=== PATIENT | female | born 1965 | race Caucasian/White ===

== ENCOUNTER 2018-04-13 04:45 | Emergency (ER) | payer OTHER, MEDICAID, SELFPAY ==
[2018-04-13] MEDS: ALBUTEROL 2.5 MG/3 ML NEB (ADULT) INH ×2 (05:00)
[2018-04-13 05:02] VITALS: BP 191/112; PULSE 127; RESP 24; TEMP 37.1; O2SAT 95; BMI 40.7
--- NOTE | 2018-04-13 05:10 | DI.RAD.S_ITS ---
PROCEDURE: XR CHEST 1V INDICATIONS: sob, wheeze TECHNIQUE: One view of the chest was acquired. COMPARISON: [facility], CR, XR CHEST 1VW (PORTABLE), 08/07/2016, 14:41. FINDINGS: Surgical changes and devices: None. Lungs and pleura: There is diffuse interstitial prominence. No focal pulmonary opacities. No pleural effusion or pneumothorax. Mediastinum: Mediastinal contours appear normal. Heart size is normal. Bones and chest wall: No suspicious bony lesions. Overlying soft tissues appear unremarkable. IMPRESSION: Diffuse interstitial prominence suggesting fluid overload. Dictated by: Margo Regalado M.D. on 04/13/2018 at 8:36 Approved by: Margo Regalado M.D. on 04/13/2018 at 8:37
--- NOTE | 2018-04-13 05:27 | ED.SOB ---
HPI - SOB/Dyspnea General Chief Complaint: Shortness of Breath/Dyspnea Stated Complaint: coughing wheezing x2 days Time Seen by Provider: 04/13/18 05:08 Source: patient Mode of arrival: ambulatory Limitations: no limitations History of Present Illness This is a 53-year-old female comes to the emergency department with complaint of shortness of breath and wheezing. Patient states she has a history of COPD. She has an albuterol inhaler which she has been using. She is to be on steroid inhalers but has not had them in a long time. She just got back from [facility] Saturday evening and states she was around a lot of smoke which probably exacerbated her symptoms. She has not had any fevers. She has been coughing. She denies any chest pain or pressure. No GI or urinary symptoms no nausea or vomiting. Patient has been hospitalized before but never intubated for her breathing. She also has a history of irregular heartbeat and when asked if she has has atrial fibrillation believe she does. She is also not taking any medications for this. She is not taking any blood thinners. Related Data Previous Rx's Medication Instructions Recorded albuterol sulfate 1 puff INHALATION Q4-6H PRN #6.7 04/13/18 gram prednisone 40 mg PO DAILY 5 Days tab 04/13/18 Allergies Allergy/AdvReac Type Severity Reaction Status Date / Time azithromycin Allergy Verified 04/13/18 05:08 morphine Allergy Verified 04/13/18 05:08 Review of Systems Review of Systems All systems reviewed & are unremarkable except as noted in HPI and below Constitutional Denies fever(s) Cardiovascular Denies chest pain, Denies diaphoresis, Reports rapid heart rate, Reports dyspnea and Reports dyspnea on exertion Respiratory Denies chest congestion, Denies cough, Denies excessive phlegm production, Reports dyspnea, Reports dyspnea on exertion and Reports wheezing Gastrointestinal Gastrointestinal: Denies abdominal pain, Denies change in bowel habits, Denies diarrhea, Denies nausea and Denies vomiting Musculoskeletal Denies other (Edema bilateral legs) Allergic/Immunologic Reports wheezing [facility] Medical History COPD (chronic obstructive pulmonary disease) (Acute) Hypertension (Acute) Irregular heartbeat (Acute) Exam Narrative Exam Narrative: GENERAL: Alert and oriented x three, obese female in moderate distress HEENT: Head normocephalic, atraumatic, EOMI, pupils reactive, face symmetric, moist mucous membranes, no nasal congestion. NECK: Supple, full range of motion CARDIOVASCULAR: Tachycardic but Regular rate and rhythm without murmurs, rubs or gallops. RESPIRATORY: Breath sounds equal bilaterally, diffuse wheezes bilaterally. Expiratory. Tachypneic with accessory muscle use in 2-3 words. ABDOMEN: Soft, nontender. Normoactive bowel sounds all 4 quadrants. No guarding or rebound, rigidity, no mass EXTREMITIES: Normal range of motion, no clubbing or edema. Neurovascularly intact NEUROLOGICAL: Cranial nerves II through XII grossly intact. Moving all extremities SKIN: Warm, dry, no petechiae, no rashes or lesions. Initial Vital Signs Initial Vital Signs: Vital Signs Temperature 98.7 F 04/13/18 05:02 Pulse Rate 127 H 04/13/18 05:02 Respiratory Rate 24 04/13/18 05:02 Blood Pressure 191/112 H 04/13/18 05:02 Pulse Oximetry 95 04/13/18 05:02 Course Orders Ordered: ED Orders 04/13/18 05:09 Consult to Respiratory Therapy Evaluate & Treat EKG-12 Lead Stat 04/13/18 05:10 XR chest 1V Stat 04/13/18 05:26 B Type Natriuretic Peptide Stat Basic Metabolic Panel Stat Complete Blood Count AUTO DIFF Stat Magnesium Stat Troponin & CK Cardiac Panel Stat Discontinued Medications Albuterol (Ventolin) 2.5 mg INH NOW ONE Stop: 04/13/18 04:58 Last Admin: 04/13/18 05:00 Dose: 2.5 mg Albuterol (Ventolin) 2.5 mg INH NOW ONE Stop: 04/13/18 05:00 Last Admin: 04/13/18 05:00 Dose: 2.5 mg Sodium Chloride (Normal Saline 0.9%) 1,000 mls @ 1,000 mls/hr IV BOLUS ONE Stop: 04/13/18 06:08 Last Infusion: 04/13/18 06:31 Dose: 0 mls/hr Admin: 04/13/18 05:41 Dose: 1,000 mls/hr Methylprednisolone (Solu-Medrol 125 Mg Vial) 125 mg IV NOW ONE Stop: 04/13/18 05:10 Last Admin: 04/13/18 05:41 Dose: 125 mg Vital Signs - 8 hr 04/13/18 05:02 04/13/18 05:30 04/13/18 06:00 Temperature 98.7 F Pulse Rate 127 H 120 H 118 H Respiratory Rate 24 Blood Pressure 191/112 H Blood Pressure [Right Arm] 158/112 H 186/112 H Pulse Oximetry 95 91 92 MDM - SOB/Dyspnea Lab Data Attestation: I reviewed the patient's lab results. Result diagrams: 04/13/18 05:26 04/13/18 05:26 Lab Results 04/13/18 04/13/18 Range/Units 05:26 05:26 WBC 9.8 (4.5-11.0) X10^3/uL RBC 4.98 (4.0-5.2) X10^6/uL Hgb 13.4 (12.0-16.0) g/dL Hct 40.9 (36-46) % MCV 82.2 (80-100) fL MCH 26.9 (26-34) PG MCHC 32.7 (30-36) % RDW 16.4 H (11.6-14.8) % Plt Count 235 (150-400) X10^3/uL Neut % (Auto) 78.7 H (50-75) % Lymph % (Auto) 11.4 L (25-40) % [place] % (Auto) 7.7 (3-14) % Eos % (Auto) 1.4 L (2-4) % Baso % (Auto) 0.8 (0-2) % Neut # (Auto) 7700 H (6087-4191) /uL Sodium 142 (137-145) mmol/L Potassium 4.0 (3.4-5.1) mmol/L Chloride 102 (98-107) mmol/L Carbon Dioxide 27 (22-32) mmol/L BUN 6 L (7-17) mg/dL Creatinine 0.60 (0.52-1.04) mg/dL Estimated GFR > 60.0 (>60) mL/min BUN/Creatinine Ratio 10.0 (6-22) Glucose 136 H (70-100) mg/dL Calcium 9.2 (8.4-10.2) mg/dL Magnesium 2.0 (1.6-2.3) mg/dL Total Creatine Kinase 239 H (30-135) U/L CK-MB (CK-2) 2.12 (<2.37) ng/mL CK-MB (CK-2) Rel Index 0.9 L (1.5-5.0) % Troponin I 0.032 (0.01-0.034) ng/mL B-Natriuretic Peptide 83.1 (<100) Imaging Data Chest x-ray: My impression: Patient has clear pneumonia. Patient has no pneumothorax. Hyperaeration ECG Data Attestation: I personally reviewed and interpreted this ECG as follows: Interpretation: Sinus tachycardia rate of 110 P are 100 QRS of 86 and QTC of 416. Nonspecific T-wave changes. MDM Narrative Medical decision making narrative: Patient's breathing is improved she still slightly tachycardic. Her oxygenation has improved. She has very minimal wheeze on the right after breathing treatments and feels much better. We discussed doing an ambulatory pulse ox if this maintained appropriate level can DC home otherwise may need to admit patient. Patient has improved oxygenation with walking and feels better. Discussed she is to follow up and get medications for her blood pressure. 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 Discharge Plan Departure Patient Disposition: Home Clinical Impression: Acute exacerbation of chronic obstructive pulmonary disease (COPD) Discharge Date/Time: 04/13/18 06:33 Interventions: ED Discharge Assessment Last Done: 04/13/18 06:32 Instructions: DI for Chronic Obstructive Pulmonary Disease Activity Restrictions/Additional Instructions: Follow-up with primary care in the next 2-3 days for recheck as well as to reestablish your Heart and Lung medications. Return to the emergency department if you're having worsening symptoms, fevers increasing shortness of breath, chest pain or other new or concerning symptoms. Take prednisone as prescribed until it is gone. Continue to use albuterol 1-2 puffs every 4 hr as needed. Prescriptions: New prednisone 20 mg tablet 40 mg PO DAILY 5 Days RF: 0 albuterol sulfate 90 mcg/actuation HFA aerosol inhaler 1 puff INHALATION Q4-6H PRN (Reason: shortness of breath or wheezing) Qty: 6.7 RF: 0
[2018-04-13 05:30] VITALS: BP 158/112; PULSE 120; O2SAT 91
[2018-04-13] MEDS: SODIUM CHLORIDE 0.9% 1,000 ML 1000 ML IV (05:41)
[2018-04-13] MEDS: methylPREDNISolone 125 MG/2 ML VIAL IV (05:41)
[2018-04-13 05:42] LABS: Add Manual Diff / Slide Review NO; Basophils Percent Auto 0.8 % (0-2); Eosinophils Percent Auto 1.4 % (2-4); Hematocrit 40.9 % (36-46); Hemoglobin 13.4 g/dL (12.0-16.0); Lymphocytes Percent Auto 11.4 % (25-40); Mean Corpuscular HGB Conc 32.7 % (30-36); Mean Corpuscular Hemoglobin 26.9 PG (26-34); Mean Corpuscular Volume 82.2 fL (80-100); Monocytes Percent Auto 7.7 % (3-14); Neutrophils Absolute Auto 7700 /uL (3000-5900); Neutrophils Percent Auto 78.7 % (50-75); Platelet Count 235 X10^3/uL (150-400); Red Blood Cell Count 4.98 X10^6/uL (4.0-5.2); Red Cell Distribution Width 16.4 % (11.6-14.8); White Blood Cell Count 9.8 X10^3/uL (4.5-11.0)
[2018-04-13 05:50] LABS: Blood Urea Nitrogen 6 mg/dL (7-17); Calcium 9.2 mg/dL (8.4-10.2); Carbon Dioxide 27 mmol/L (22-32); Chloride 102 mmol/L (98-107); Creatine Kinase 239 U/L (30-135); Estimated Glomerular Filt Rate > 60.0 mL/min (>60); Glucose 136 mg/dL (70-100); HEMOLYSIS < 15 (0-50); Sodium 142 mmol/L (137-145)
[2018-04-13 06:00] VITALS: BP 186/112; PULSE 118; O2SAT 92
[2018-04-13 06:01] LABS: Troponin I 0.032 ng/mL (0.01-0.034)
[2018-04-13 06:05] LABS: B Type Natriuretic Peptide 83.1 (<100); CKMB % Relative Index 0.9 % (1.5-5.0); Creatine Kinase MB 2.12 ng/mL (<2.37)
== END 2018-04-13 06:33 | disposition home or self-care (01) ==
PROVIDERS: Emergency Provider Emergency Medicine
DX: J44.1 Chronic obstructive pulmonary disease with (acute) exacerbation (principal)
CPT/HCPCS: 36591; 71045; 80048; 82550; 82553; 83735; 83880; 84484; 85025; 93005; 93010; 96361; 96374; 99283; 99285; J2930; J7613

== ENCOUNTER 2018-04-16 10:34 | Emergency (ER) | payer OTHER, MEDICAID, SELFPAY ==
[2018-04-16 10:38] VITALS: BP 227/125; PULSE 111; RESP 28; TEMP 36.8; O2SAT 91; BMI 41.4
[2018-04-16] MEDS: ALBUTEROL/IPRATROPIUM 3 ML AMPUL INH ×2 (10:45→12:49)
[2018-04-16 10:47] VITALS: PULSE 117; RESP 22; O2SAT 92
[2018-04-16 11:54] VITALS: BP 186/121; PULSE 98; RESP 22; O2SAT 92
[2018-04-16 12:03] LABS: Add Manual Diff / Slide Review NO; Basophils Percent Auto 0.3 % (0-2); Eosinophils Percent Auto 0.5 % (2-4); Hematocrit 42.4 % (36-46); Hemoglobin 13.8 g/dL (12.0-16.0); Lymphocytes Percent Auto 8.3 % (25-40); Mean Corpuscular HGB Conc 32.5 % (30-36); Mean Corpuscular Hemoglobin 26.8 PG (26-34); Mean Corpuscular Volume 82.5 fL (80-100); Neutrophils Absolute Auto 9900 /uL (3000-5900); Neutrophils Percent Auto 87.9 % (50-75); Platelet Count 301 X10^3/uL (150-400); Red Blood Cell Count 5.14 X10^6/uL (4.0-5.2); Red Cell Distribution Width 16.2 % (11.6-14.8); White Blood Cell Count 11.3 X10^3/uL (4.5-11.0)
[2018-04-16 12:09] LABS: Lactate (Lactic Acid) 2.1 mmol/L (0.7-2.1)
[2018-04-16 12:10] LABS: Blood Urea Nitrogen 12 mg/dL (7-17); Calcium 9.4 mg/dL (8.4-10.2); Carbon Dioxide 33 mmol/L (22-32); Chloride 101 mmol/L (98-107); Creatine Kinase 292 U/L (30-135); Estimated Glomerular Filt Rate > 60.0 mL/min (>60); Glucose 151 mg/dL (70-100); HEMOLYSIS < 15 (0-50); Magnesium 1.8 mg/dL (1.6-2.3); Potassium 3.9 mmol/L (3.4-5.1); Sodium 142 mmol/L (137-145)
[2018-04-16 12:19] LABS: Troponin I 0.018 ng/mL (0.01-0.034)
[2018-04-16 12:20] LABS: B Type Natriuretic Peptide < 100.0 (<100)
[2018-04-16 12:23] LABS: Procalcitonin < 0.05 ng/mL (<0.5)
[2018-04-16 12:25] LABS: Creatine Kinase MB 2.85 ng/mL (<2.37)
--- NOTE | 2018-04-16 12:26 | DI.RAD.S_ITS ---
PROCEDURE: XR CHEST 2V INDICATIONS: shortness of breath TECHNIQUE: 2 views of the chest were acquired. COMPARISON: [facility], , XR CHEST 1V, 04/13/2018, 5:19. FINDINGS: Surgical changes and devices: None. Lungs and pleura: No pleural effusions or pneumothorax. Mild pulmonary vascular congestion is seen. Mediastinum: Mediastinal contours are normal. Heart size is enlarged. Bones and chest wall: No suspicious bony abnormalities. Soft tissues appear unremarkable. IMPRESSION: Mild congestion. Cardiomegaly. No definite focal infiltrate. Dictated by: Clarke Talbot M.D. on 04/16/2018 at 12:59 Approved by: Clarke Talbot M.D. on 04/16/2018 at 13:26
--- NOTE | 2018-04-16 12:29 | ED.SOB ---
HPI - SOB/Dyspnea <FIORELLA Sesay - Last Filed: 04/16/18 19:54> General Chief Complaint: Shortness of Breath/Dyspnea Stated Complaint: cant breathe Time Seen by Provider: 04/16/18 12:11 Source: patient Mode of arrival: ambulatory Limitations: no limitations History of Present Illness Patient is a 53-year-old female who presents with chief complaint of shortness of breath and wheezing. She states she has a long history of COPD, and was seen here on 04/13. She states that the steroids helped her feel better for short amount of time, but they ?wore out? quickly. She states she got back from [facility] and about on Saturday evening it was around a large amount of smoke. She states she has wheezing very badly. She denies any chest pain, chest pressure pressure, fever, urinary symptoms. She denies any nausea, vomiting, diarrhea. She states she has been using somebody else's nebulizer, somebody else's albuterol nebulized treatments, and states that she is not sure if they have or not. She states her sputum is ?watery and she has increased sputum production. Related Data Home Medications Medication Instructions Recorded Confirmed Excedrin 1 tab PO PRN PRN 04/16/18 04/16/18 ibuprofen [Advil] 1 dose PO PRN PRN 04/16/18 04/16/18 naproxen sodium [Aleve] 1 dose PO PRN PRN 04/16/18 04/16/18 Previous Rx's Medication Instructions Recorded albuterol sulfate 1 puff INHALATION Q4-6H PRN #6.7 04/13/18 gram doxycycline monohydrate 100 mg PO BID #20 cap 04/16/18 ipratropium-albuterol 3 ml INHALATION Q4-6H PRN #90 ml 04/16/18 prednisone 50 mg PO DAILY #5 tab 04/16/18 Allergies Allergy/AdvReac Type Severity Reaction Status Date / Time azithromycin Allergy Verified 04/16/18 10:37 morphine Allergy Verified 04/16/18 10:37 Review of Systems <FIORELLA Sesay - Last Filed: 04/16/18 19:54> Review of Systems GENERAL: See HPI HEENT: Denies sinus pain, ear pain, sore throat, difficulty swallowing, dizziness. RESPIRATORY: See HPI CARDIOVASCULAR: Denies chest pain, palpitations, orthopnea, edema, GASTROINTESTINAL: Denies nausea, vomiting, abdominal pain, diarrhea, constipation, melena. : Denies dysuria, frequency, incontinence, hematuria, urinary retention. MUSCULOSKELETAL: denies weakness, joint pain, or bony pain SKIN: Denies rash, skin lesions, or other NEUROLOGIC: Denies weakness, headache, numbness, change in speech, confusion, seizures, incoordination. PSYCHIATRIC: No concerning psychosocial issues. 12 point review of systems is negative except for those stated above Exam <JADON Sesay-BC - Last Filed: 04/16/18 19:54> Narrative Exam Narrative: GENERAL: This is a well-nourished, well-developed patient, in mild distress. HEAD: Atraumatic. Normocephalic. No temporal or scalp tenderness. EYES: Pupils equal round and reactive. Extraocular motions intact. No scleral icterus. No injection or drainage. ENT: Nose without bleeding, purulent drainage or septal hematoma. Throat without erythema, tonsillar hypertrophy or exudate. Uvula midline. Airway patent. NECK: Trachea midline. No JVD or lymphadenopathy. Supple, nontender, no meningeal signs. CARDIOVASCULAR: Regular rate and rhythm. Tachycardic. RESPIRATORY: Inspiratory and expiratory wheezes to auscultation. Breath sounds equal bilaterally. No wheezes, rales, or rhonchi. Patient is sitting in a tripod position. No accessory muscle use GASTROINTESTINAL: Abdomen soft, non-tender, nondistended. No hepato-splenomegaly, or palpable masses. No guarding. EXTREMITIES: No clubbing, cyanosis, or edema. No joint tenderness, effusion, or edema noted. BACK: Nontender without deformity or crepitance. No flank tenderness. NEURO: AOx3. Stable gait. Strength equal upper and lower extremities bilaterally. SKIN: No rash or erythema. Initial Vital Signs Initial Vital Signs: Vital Signs Temperature 98.2 F 04/16/18 10:38 Pulse Rate 111 H 04/16/18 10:38 Respiratory Rate 28 H 04/16/18 10:38 Blood Pressure 227/125 H 04/16/18 10:38 Pulse Oximetry 91 04/16/18 10:38 <Svitlana Treadwell DO - Last Filed: 04/18/18 09:45> Initial Vital Signs Initial Vital Signs: Vital Signs Temperature 98.2 F 04/16/18 10:38 Pulse Rate 111 H 04/16/18 10:38 Respiratory Rate 28 H 04/16/18 10:38 Blood Pressure 227/125 H 04/16/18 10:38 Pulse Oximetry 91 04/16/18 10:38 Course <Svitlana Massey, FRONT END LOADER [employer]IVER-BC - Last Filed: 04/16/18 19:54> Orders Ordered: Discontinued Medications Albuterol/Ipratropium (Duoneb) 3 ml INH NOW ONE Stop: 04/16/18 10:46 Last Admin: 04/16/18 10:45 Dose: 3 ml Albuterol/Ipratropium (Duoneb) 3 ml INH NOW ONE Stop: 04/16/18 12:47 Last Admin: 04/16/18 12:49 Dose: 3 ml Methylprednisolone (Solu-Medrol 125 Mg Vial) 125 mg IV NOW ONE Stop: 04/16/18 12:28 Last Admin: 04/16/18 12:59 Dose: 125 mg Reevaluation(s) Reevaluation #1: Patient sitting on stretcher. Appears much more relaxed. Discussed possibility of a CT scan for PE but patient declined as she states she believes this is a really bad COPD exacerbation. I discussed waiting for x-ray results. Discussed possibility of PE given patient's tachycardia, recent travel, smoking, etc. However patient declined CT scan for PE stating that she expected chest pain if she has one and she is confident this is a COPD exacerbation. Time: 13:20 Reevaluation #2: Discussed at length patient's high blood pressures. Patient states she considers her blood pressures of 200/100 to be low. She states this is lower than she normally is. She denies any chest pain or neurological symptoms. 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 Time: 13:50 Vital Signs - 8 hr 04/16/18 11:54 04/16/18 12:45 04/16/18 14:00 Pulse Rate 98 H 99 H 95 H Respiratory Rate 22 24 19 Blood Pressure Blood Pressure [Left Arm] 186/121 H 198/129 H 200/123 H Pulse Oximetry 92 94 94 04/16/18 14:24 Pulse Rate 95 H Respiratory Rate 19 Blood Pressure 200/123 H Blood Pressure [Left Arm] Pulse Oximetry 93 <Svitlana Treadwell DO - Last Filed: 04/18/18 09:45> Orders Ordered: Discontinued Medications Albuterol/Ipratropium (Duoneb) 3 ml INH NOW ONE Stop: 04/16/18 10:46 Last Admin: 04/16/18 10:45 Dose: 3 ml Albuterol/Ipratropium (Duoneb) 3 ml INH NOW ONE Stop: 04/16/18 12:47 Last Admin: 04/16/18 12:49 Dose: 3 ml Methylprednisolone (Solu-Medrol 125 Mg Vial) 125 mg IV NOW ONE Stop: 04/16/18 12:28 Last Admin: 04/16/18 12:59 Dose: 125 mg Vital Signs - 8 hr 04/16/18 11:54 04/16/18 12:45 04/16/18 14:00 Pulse Rate 98 H 99 H 95 H Respiratory Rate 22 24 19 Blood Pressure Blood Pressure [Left Arm] 186/121 H 198/129 H 200/123 H Pulse Oximetry 92 94 94 04/16/18 14:24 Pulse Rate 95 H Respiratory Rate 19 Blood Pressure 200/123 H Blood Pressure [Left Arm] Pulse Oximetry 93 MDM - SOB/Dyspnea <HILL SesayBC - Last Filed: 04/16/18 19:54> Lab Data Result diagrams: 04/16/18 11:45 04/16/18 11:45 Lab Results 04/16/18 04/16/18 04/16/18 Range/Units 11:45 11:45 11:45 WBC 11.3 H (4.5-11.0) X10^3/uL RBC 5.14 (4.0-5.2) X10^6/uL Hgb 13.8 (12.0-16.0) g/dL Hct 42.4 (36-46) % MCV 82.5 (80-100) fL MCH 26.8 (26-34) PG MCHC 32.5 (30-36) % RDW 16.2 H (11.6-14.8) % Plt Count 301 (150-400) X10^3/uL Neut % (Auto) 87.9 H (50-75) % Lymph % (Auto) 8.3 L (25-40) % [place] % (Auto) 3.0 (3-14) % Eos % (Auto) 0.5 L (2-4) % Baso % (Auto) 0.3 (0-2) % Neut # (Auto) 9900 H (4695-1896) /uL Sodium 142 (137-145) mmol/L Potassium 3.9 (3.4-5.1) mmol/L Chloride 101 (98-107) mmol/L Carbon Dioxide 33 H (22-32) mmol/L BUN 12 (7-17) mg/dL Creatinine 0.60 (0.52-1.04) mg/dL Estimated GFR > 60.0 (>60) mL/min BUN/Creatinine Ratio 20.0 (6-22) Glucose 151 H (70-100) mg/dL Lactate (0.7-2.1) mmol/L Calcium 9.4 (8.4-10.2) mg/dL Magnesium 1.8 (1.6-2.3) mg/dL Total Creatine Kinase 292 H (30-135) U/L CK-MB (CK-2) 2.85 H (<2.37) ng/mL CK-MB (CK-2) Rel Index 1.0 L (1.5-5.0) % Troponin I 0.018 (0.01-0.034) ng/mL B-Natriuretic Peptide < 100.0 (<100) Procalcitonin < 0.05 (<0.5) ng/mL 04/16/ Range/Units 11:45 WBC (4.5-11.0) X10^3/uL RBC (4.0-5.2) X10^6/uL Hgb (12.0-16.0) g/dL Hct (36-46) % MCV (80-100) fL MCH (26-34) PG MCHC (30-36) % RDW (11.6-14.8) % Plt Count (150-400) X10^3/uL Neut % (Auto) (50-75) % Lymph % (Auto) (25-40) % [place] % (Auto) (3-14) % Eos % (Auto) (2-4) % Baso % (Auto) (0-2) % Neut # (Auto) (6614-1262) /uL Sodium (137-145) mmol/L Potassium (3.4-5.1) mmol/L Chloride (98-107) mmol/L Carbon Dioxide (22-32) mmol/L BUN (7-17) mg/dL Creatinine (0.52-1.04) mg/dL Estimated GFR (>60) mL/min BUN/Creatinine Ratio (6-22) Glucose (70-100) mg/dL Lactate 2.1 (0.7-2.1) mmol/L Calcium (8.4-10.2) mg/dL Magnesium (1.6-2.3) mg/dL Total Creatine Kinase (30-135) U/L CK-MB (CK-2) (<2.37) ng/mL CK-MB (CK-2) Rel Index (1.5-5.0) % Troponin I (0.01-0.034) ng/mL B-Natriuretic Peptide (<100) Procalcitonin (<0.5) ng/mL ECG Data Attestation: I personally reviewed and interpreted this ECG as follows: Interpretation: Sinus tachycardia. Ventricular rate 108. No ectopy noted. MDM Narrative Medical decision making narrative: Patient presents with a chief complaint of COPD flare. She has still not followed up with her primary care provider as discussed at the last primary care visit. She was treated in the emergency department with steroids and nebulizers. She states she felt much better after her DuoNeb especially. I discharged her with steroids, home duo nebs as she has a home nebulizer now, as well as doxycycline given her increased sputum production. I discussed at length with the patient how is imperative that she follow up with her primary care provider. I discussed at length that I am concerned about her blood pressure, even though she states her blood pressure is low for her, and discussed concerns about future NM or CVA. I encourage she continue to stop smoking. She remained hemodynamically stable throughout her stay in the emergency department had no questions or concerns upon discharge. <Svitlana Treadwell, - Last Filed: 04/18/18 09:45> Lab Data Lab Results 04/16/18 04/16/18 04/16/18 Range/Units 11:45 11:45 11:45 WBC 11.3 H (4.5-11.0) X10^3/uL RBC 5.14 (4.0-5.2) X10^6/uL Hgb 13.8 (12.0-16.0) g/dL Hct 42.4 (36-46) % MCV 82.5 (80-100) fL MCH 26.8 (26-34) PG MCHC 32.5 (30-36) % RDW 16.2 H (11.6-14.8) % Plt Count 301 (150-400) X10^3/uL Neut % (Auto) 87.9 H (50-75) % Lymph % (Auto) 8.3 L (25-40) % [place] % (Auto) 3.0 (3-14) % Eos % (Auto) 0.5 L (2-4) % Baso % (Auto) 0.3 (0-2) % Neut # (Auto) 9900 H (9758-9874) /uL Sodium 142 (137-145) mmol/L Potassium 3.9 (3.4-5.1) mmol/L Chloride 101 (98-107) mmol/L Carbon Dioxide 33 H (22-32) mmol/L BUN 12 (7-17) mg/dL Creatinine 0.60 (0.52-1.04) mg/dL Estimated GFR > 60.0 (>60) mL/min BUN/Creatinine Ratio 20.0 (6-22) Glucose 151 H (70-100) mg/dL Lactate (0.7-2.1) mmol/L Calcium 9.4 (8.4-10.2) mg/dL Magnesium 1.8 (1.6-2.3) mg/dL Total Creatine Kinase 292 H (30-135) U/L CK-MB (CK-2) 2.85 H (<2.37) ng/mL CK-MB (CK-2) Rel Index 1.0 L (1.5-5.0) % Troponin I 0.018 (0.01-0.034) ng/mL B-Natriuretic Peptide < 100.0 (<100) Procalcitonin < 0.05 (<0.5) ng/mL 04/16/18 Range/Units 11:45 WBC (4.5-11.0) X10^3/uL RBC (4.0-5.2) X10^6/uL Hgb (12.0-16.0) g/dL Hct (36-46) % MCV (80-100) fL MCH (26-34) PG MCHC (30-36) % RDW (11.6-14.8) % Plt Count (150-400) X10^3/uL Neut % (Auto) (50-75) % Lymph % (Auto) (25-40) % [place] % (Auto) (3-14) % Eos % (Auto) (2-4) % Baso % (Auto) (0-2) % Neut # (Auto) (9442-3417) /uL Sodium (137-145) mmol/L Potassium (3.4-5.1) mmol/L Chloride (98-107) mmol/L Carbon Dioxide (22-32) mmol/L BUN (7-17) mg/dL Creatinine (0.52-1.04) mg/dL Estimated GFR (>60) mL/min BUN/Creatinine Ratio (6-22) Glucose (70-100) mg/dL Lactate 2.1 (0.7-2.1) mmol/L Calcium (8.4-10.2) mg/dL Magnesium (1.6-2.3) mg/dL Total Creatine Kinase (30-135) U/L CK-MB (CK-2) (<2.37) ng/mL CK-MB (CK-2) Rel Index (1.5-5.0) % Troponin I (0.01-0.034) ng/mL B-Natriuretic Peptide (<100) Procalcitonin (<0.5) ng/mL Discharge Plan Departure Patient Disposition: Home Clinical Impression: Acute exacerbation of chronic obstructive pulmonary disease (COPD) Discharge Date/Time: 04/16/18 14:26 Interventions: ED Discharge Assessment Last Done: 04/16/18 14:24 Instructions: DI for Chronic Obstructive Pulmonary Disease Activity Restrictions/Additional Instructions: I am starting you on steroids, duo nebs as needed, and antibiotics for your COPD exacerbation. Please follow-up with primary care provider. I have provided with a list of primary care providers in the area accepting new patients. I discussed at length with you that I am worried about her blood pressure, your COPD, and your overall health. I would like you to follow up with primary care provider in the next few days. Come back to the emergency department if needed. Remember there is testing that we discussed that we did not do today, so please be mindful of this. Come back to the emergency department if needed. Prescriptions: New ipratropium-albuterol 0.5 mg-3 mg(2.5 mg base)/3 mL solution for nebulization 3 ml INHALATION Q4-6H PRN (Reason: wheezing) Qty: 90 RF: 0 prednisone 50 mg tablet 50 mg PO DAILY Qty: 5 RF: 0 doxycycline monohydrate 100 mg capsule 100 mg PO BID Qty: 20 RF: 0 No Action albuterol sulfate 90 mcg/actuation HFA aerosol inhaler 1 puff INHALATION Q4-6H PRN (Reason: shortness of breath or wheezing) Qty: 6.7 RF: 0 naproxen sodium [Aleve] 220 mg Tablet 1 dose PO PRN PRN (Reason: pain) RF: 0 ibuprofen [Advil] 200 mg Tablet 1 dose PO PRN PRN (Reason: pain) RF: 0 Excedrin 1 tab PO PRN PRN (Reason: pain) RF: 0 <Svitlana Treadwell DO - Last Filed: 04/18/18 09:45> [facility] Att[facility]: I was immediately available in the department for consultation. This documentation has been reviewed and I agree with assessment and plan. Supervised by Svitlana Treadwell DO
--- NOTE | 2018-04-16 12:32 | ED_ITS ---
HPI - SOB/Dyspnea <FIORELLA Sesay - Last Filed: 04/16/18 19:54> General Chief Complaint: Shortness of Breath/Dyspnea Stated Complaint: cant breathe Time Seen by Provider: 04/16/18 12:11 Source: patient Mode of arrival: ambulatory Limitations: no limitations History of Present Illness Patient is a 53-year-old female who presents with chief complaint of shortness of breath and wheezing. She states she has a long history of COPD, and was seen here on 04/13. She states that the steroids helped her feel better for short amount of time, but they ?wore out? quickly. She states she got back from [facility] and about on Saturday evening it was around a large amount of smoke. She states she has wheezing very badly. She denies any chest pain, chest pressure pressure, fever, urinary symptoms. She denies any nausea, vomiting, diarrhea. She states she has been using somebody else's nebulizer, somebody else's albuterol nebulized treatments, and states that she is not sure if they have or not. She states her sputum is ?watery and she has increased sputum production. Related Data Home Medications Medication Instructions Recorded Confirmed Excedrin 1 tab PO PRN PRN 04/16/18 04/16/18 ibuprofen [Advil] 1 dose PO PRN PRN 04/16/18 04/16/18 naproxen sodium [Aleve] 1 dose PO PRN PRN 04/16/18 04/16/18 Previous Rx's Medication Instructions Recorded albuterol sulfate 1 puff INHALATION Q4-6H PRN #6.7 04/13/18 gram doxycycline monohydrate 100 mg PO BID #20 cap 04/16/18 ipratropium-albuterol 3 ml INHALATION Q4-6H PRN #90 ml 04/16/18 prednisone 50 mg PO DAILY #5 tab 04/16/18 Allergies Allergy/AdvReac Type Severity Reaction Status Date / Time azithromycin Allergy Verified 04/16/18 10:37 morphine Allergy Verified 04/16/18 10:37 Review of Systems <FIORELLA Sesay - Last Filed: 04/16/18 19:54> Review of Systems GENERAL: See HPI HEENT: Denies sinus pain, ear pain, sore throat, difficulty swallowing, dizziness. RESPIRATORY: See HPI CARDIOVASCULAR: Denies chest pain, palpitations, orthopnea, edema, GASTROINTESTINAL: Denies nausea, vomiting, abdominal pain, diarrhea, constipation, melena. : Denies dysuria, frequency, incontinence, hematuria, urinary retention. MUSCULOSKELETAL: denies weakness, joint pain, or bony pain SKIN: Denies rash, skin lesions, or other NEUROLOGIC: Denies weakness, headache, numbness, change in speech, confusion, seizures, incoordination. PSYCHIATRIC: No concerning psychosocial issues. 12 point review of systems is negative except for those stated above Exam <JADON Sesay-BC - Last Filed: 04/16/18 19:54> Narrative Exam Narrative: GENERAL: This is a well-nourished, well-developed patient, in mild distress. HEAD: Atraumatic. Normocephalic. No temporal or scalp tenderness. EYES: Pupils equal round and reactive. Extraocular motions intact. No scleral icterus. No injection or drainage. ENT: Nose without bleeding, purulent drainage or septal hematoma. Throat without erythema, tonsillar hypertrophy or exudate. Uvula midline. Airway patent. NECK: Trachea midline. No JVD or lymphadenopathy. Supple, nontender, no meningeal signs. CARDIOVASCULAR: Regular rate and rhythm. Tachycardic. RESPIRATORY: Inspiratory and expiratory wheezes to auscultation. Breath sounds equal bilaterally. No wheezes, rales, or rhonchi. Patient is sitting in a tripod position. No accessory muscle use GASTROINTESTINAL: Abdomen soft, non-tender, nondistended. No hepato-splenomegaly , or palpable masses. No guarding. EXTREMITIES: No clubbing, cyanosis, or edema. No joint tenderness, effusion, or edema noted. BACK: Nontender without deformity or crepitance. No flank tenderness. NEURO: AOx3. Stable gait. Strength equal upper and lower extremities bilaterally. SKIN: No rash or erythema. Initial Vital Signs Initial Vital Signs: Vital Signs Temperature 98.2 F 04/16/18 10:38 Pulse Rate 111 H 04/16/18 10:38 Respiratory Rate 28 H 04/16/18 10:38 Blood Pressure 227/125 H 04/16/18 10:38 Pulse Oximetry 91 04/16/18 10:38 <Svitlana Treadwell DO - Last Filed: 04/18/18 09:45> Initial Vital Signs Initial Vital Signs: Vital Signs Temperature 98.2 F 04/16/18 10:38 Pulse Rate 111 H 04/16/18 10:38 Respiratory Rate 28 H 04/16/18 10:38 Blood Pressure 227/125 H 04/16/18 10:38 Pulse Oximetry 91 04/16/18 10:38 Course <Svitlana Massey, DBA-BC - Last Filed: 04/16/18 19:54> Orders Ordered: Discontinued Medications Albuterol/Ipratropium (Duoneb) 3 ml INH NOW ONE Stop: 04/16/18 10:46 Last Admin: 04/16/18 10:45 Dose: 3 ml Albuterol/Ipratropium (Duoneb) 3 ml INH NOW ONE Stop: 04/16/18 12:47 Last Admin: 04/16/18 12:49 Dose: 3 ml Methylprednisolone (Solu-Medrol 125 Mg Vial) 125 mg IV NOW ONE Stop: 04/16/18 12:28 Last Admin: 04/16/18 12:59 Dose: 125 mg Reevaluation(s) Reevaluation #1: Patient sitting on stretcher. Appears much more relaxed. Discussed possibility of a CT scan for PE but patient declined as she states she believes this is a really bad COPD exacerbation. I discussed waiting for x- ray results. Discussed possibility of PE given patient's tachycardia, recent travel, smoking, etc. However patient declined CT scan for PE stating that she expected chest pain if she has one and she is confident this is a COPD exacerbation. Time: 13:20 Reevaluation #2: Discussed at length patient's high blood pressures. Patient states she considers her blood pressures of 200/100 to be low. She states this is lower than she normally is. She denies any chest pain or neurological symptoms. I discussed at length follow up with her primary care or her food technologist as discussed in her recent emergency department visit. Time: 13:50 Vital Signs - 8 hr 04/16/18 11:54 04/16/18 12:45 04/16/18 14:00 Pulse Rate 98 H 99 H 95 H Respiratory Rate 22 24 19 Blood Pressure Blood Pressure [Left Arm] 186/121 H 198/129 H 200/123 H Pulse Oximetry 92 94 94 04/16/18 14:24 Pulse Rate 95 H Respiratory Rate 19 Blood Pressure 200/123 H Blood Pressure [Left Arm] Pulse Oximetry 93 <Svitlana Treadwell DO - Last Filed: 04/18/18 09:45> Orders Ordered: Discontinued Medications Albuterol/Ipratropium (Duoneb) 3 ml INH NOW ONE Stop: 04/16/18 10:46 Last Admin: 04/16/18 10:45 Dose: 3 ml Albuterol/Ipratropium (Duoneb) 3 ml INH NOW ONE Stop: 04/16/18 12:47 Last Admin: 04/16/18 12:49 Dose: 3 ml Methylprednisolone (Solu-Medrol 125 Mg Vial) 125 mg IV NOW ONE Stop: 04/16/18 12:28 Last Admin: 04/16/18 12:59 Dose: 125 mg Vital Signs - 8 hr 04/16/18 11:54 04/16/18 12:45 04/16/18 14:00 Pulse Rate 98 H 99 H 95 H Respiratory Rate 22 24 19 Blood Pressure Blood Pressure [Left Arm] 186/121 H 198/129 H 200/123 H Pulse Oximetry 92 94 94 04/16/18 14:24 Pulse Rate 95 H Respiratory Rate 19 Blood Pressure 200/123 H Blood Pressure [Left Arm] Pulse Oximetry 93 MDM - SOB/Dyspnea <HILL SesayBC - Last Filed: 04/16/18 19:54> Lab Data Result diagrams: 04/16/18 11:45 04/16/18 11:45 Lab Results 04/16/18 04/16/18 04/16/18 Range/Units 11:45 11:45 11:45 WBC 11.3 H (4.5-11.0) X10^3/uL RBC 5.14 (4.0-5.2) X10^6/uL Hgb 13.8 (12.0-16.0) g/dL Hct 42.4 (36-46) % MCV 82.5 (80-100) fL MCH 26.8 (26-34) PG MCHC 32.5 (30-36) % RDW 16.2 H (11.6-14.8) % Plt Count 301 (150-400) X10^3/uL Neut % (Auto) 87.9 H (50-75) % Lymph % (Auto) 8.3 L (25-40) % [place] % (Auto) 3.0 (3-14) % Eos % (Auto) 0.5 L (2-4) % Baso % (Auto) 0.3 (0-2) % Neut # (Auto) 9900 H (5870-4515) /uL Sodium 142 (137-145) mmol/L Potassium 3.9 (3.4-5.1) mmol/L Chloride 101 (98-107) mmol/L Carbon Dioxide 33 H (22-32) mmol/L BUN 12 (7-17) mg/dL Creatinine 0.60 (0.52-1.04) mg/dL Estimated GFR > 60.0 (>60) mL/min BUN/Creatinine Ratio 20.0 (6-22) Glucose 151 H (70-100) mg/dL Lactate (0.7-2.1) mmol/L Calcium 9.4 (8.4-10.2) mg/dL Magnesium 1.8 (1.6-2.3) mg/dL Total Creatine Kinase 292 H (30-135) U/L CK-MB (CK-2) 2.85 H (<2.37) ng/mL CK-MB (CK-2) Rel Index 1.0 L (1.5-5.0) % Troponin I 0.018 (0.01-0.034) ng/mL B-Natriuretic Peptide < 100.0 (<100) Procalcitonin < 0.05 (<0.5) ng/mL 04/16/ Range/Units 11:45 WBC (4.5-11.0) X10^3/uL RBC (4.0-5.2) X10^6/uL Hgb (12.0-16.0) g/dL Hct (36-46) % MCV (80-100) fL MCH (26-34) PG MCHC (30-36) % RDW (11.6-14.8) % Plt Count (150-400) X10^3/uL Neut % (Auto) (50-75) % Lymph % (Auto) (25-40) % [place] % (Auto) (3-14) % Eos % (Auto) (2-4) % Baso % (Auto) (0-2) % Neut # (Auto) (5049-3213) /uL Sodium (137-145) mmol/L Potassium (3.4-5.1) mmol/L Chloride (98-107) mmol/L Carbon Dioxide (22-32) mmol/L BUN (7-17) mg/dL Creatinine (0.52-1.04) mg/dL Estimated GFR (>60) mL/min BUN/Creatinine Ratio (6-22) Glucose (70-100) mg/dL Lactate 2.1 (0.7-2.1) mmol/L Calcium (8.4-10.2) mg/dL Magnesium (1.6-2.3) mg/dL Total Creatine Kinase (30-135) U/L CK-MB (CK-2) (<2.37) ng/mL CK-MB (CK-2) Rel Index (1.5-5.0) % Troponin I (0.01-0.034) ng/mL B-Natriuretic Peptide (<100) Procalcitonin (<0.5) ng/mL ECG Data Attestation: I personally reviewed and interpreted this ECG as follows: Interpretation: Sinus tachycardia. Ventricular rate 108. No ectopy noted. MDM Narrative Medical decision making narrative: Patient presents with a chief complaint of COPD flare. She has still not followed up with her primary care provider as discussed at the last primary care visit. She was treated in the emergency department with steroids and nebulizers. She states she felt much better after her DuoNeb especially. I discharged her with steroids, home duo nebs as she has a home nebulizer now, as well as doxycycline given her increased sputum production. I discussed at length with the patient how is imperative that she follow up with her primary care provider. I discussed at length that I am concerned about her blood pressure, even though she states her blood pressure is low for her, and discussed concerns about future IA or CVA. I encourage she continue to stop smoking. She remained hemodynamically stable throughout her stay in the emergency department had no questions or concerns upon discharge. <Svitlana Treadwell, - Last Filed: 04/18/18 09:45> Lab Data Lab Results 04/16/18 04/16/18 04/16/18 Range/Units 11:45 11:45 11:45 WBC 11.3 H (4.5-11.0) X10^3/uL RBC 5.14 (4.0-5.2) X10^6/uL Hgb 13.8 (12.0-16.0) g/dL Hct 42.4 (36-46) % MCV 82.5 (80-100) fL MCH 26.8 (26-34) PG MCHC 32.5 (30-36) % RDW 16.2 H (11.6-14.8) % Plt Count 301 (150-400) X10^3/uL Neut % (Auto) 87.9 H (50-75) % Lymph % (Auto) 8.3 L (25-40) % [place] % (Auto) 3.0 (3-14) % Eos % (Auto) 0.5 L (2-4) % Baso % (Auto) 0.3 (0-2) % Neut # (Auto) 9900 H (7789-5711) /uL Sodium 142 (137-145) mmol/L Potassium 3.9 (3.4-5.1) mmol/L Chloride 101 (98-107) mmol/L Carbon Dioxide 33 H (22-32) mmol/L BUN 12 (7-17) mg/dL Creatinine 0.60 (0.52-1.04) mg/dL Estimated GFR > 60.0 (>60) mL/min BUN/Creatinine Ratio 20.0 (6-22) Glucose 151 H (70-100) mg/dL Lactate (0.7-2.1) mmol/L Calcium 9.4 (8.4-10.2) mg/dL Magnesium 1.8 (1.6-2.3) mg/dL Total Creatine Kinase 292 H (30-135) U/L CK-MB (CK-2) 2.85 H (<2.37) ng/mL CK-MB (CK-2) Rel Index 1.0 L (1.5-5.0) % Troponin I 0.018 (0.01-0.034) ng/mL B-Natriuretic Peptide < 100.0 (<100) Procalcitonin < 0.05 (<0.5) ng/mL 04/16/18 Range/Units 11:45 WBC (4.5-11.0) X10^3/uL RBC (4.0-5.2) X10^6/uL Hgb (12.0-16.0) g/dL Hct (36-46) % MCV (80-100) fL MCH (26-34) PG MCHC (30-36) % RDW (11.6-14.8) % Plt Count (150-400) X10^3/uL Neut % (Auto) (50-75) % Lymph % (Auto) (25-40) % [place] % (Auto) (3-14) % Eos % (Auto) (2-4) % Baso % (Auto) (0-2) % Neut # (Auto) (4711-6240) /uL Sodium (137-145) mmol/L Potassium (3.4-5.1) mmol/L Chloride (98-107) mmol/L Carbon Dioxide (22-32) mmol/L BUN (7-17) mg/dL Creatinine (0.52-1.04) mg/dL Estimated GFR (>60) mL/min BUN/Creatinine Ratio (6-22) Glucose (70-100) mg/dL Lactate 2.1 (0.7-2.1) mmol/L Calcium (8.4-10.2) mg/dL Magnesium (1.6-2.3) mg/dL Total Creatine Kinase (30-135) U/L CK-MB (CK-2) (<2.37) ng/mL CK-MB (CK-2) Rel Index (1.5-5.0) % Troponin I (0.01-0.034) ng/mL B-Natriuretic Peptide (<100) Procalcitonin (<0.5) ng/mL Discharge Plan Departure Patient Disposition: Home Clinical Impression: Acute exacerbation of chronic obstructive pulmonary disease (COPD) Discharge Date/Time: 04/16/18 14:26 Interventions: ED Discharge Assessment Last Done: 04/16/18 14:24 Instructions: DI for Chronic Obstructive Pulmonary Disease Activity Restrictions/Additional Instructions: I am starting you on steroids, duo nebs as needed, and antibiotics for your COPD exacerbation. Please follow-up with primary care provider. I have provided with a list of primary care providers in the area accepting new patients. I discussed at length with you that I am worried about her blood pressure, your COPD, and your overall health. I would like you to follow up with primary care provider in the next few days. Come back to the emergency department if needed. Remember there is testing that we discussed that we did not do today, so please be mindful of this. Come back to the emergency department if needed. Prescriptions: New ipratropium-albuterol 0.5 mg-3 mg(2.5 mg base)/3 mL solution for nebulization 3 ml INHALATION Q4-6H PRN (Reason: wheezing) Qty: 90 RF: 0 prednisone 50 mg tablet 50 mg PO DAILY Qty: 5 RF: 0 doxycycline monohydrate 100 mg capsule 100 mg PO BID Qty: 20 RF: 0 No Action albuterol sulfate 90 mcg/actuation HFA aerosol inhaler 1 puff INHALATION Q4-6H PRN (Reason: shortness of breath or wheezing) Qty: 6.7 RF: 0 naproxen sodium [Aleve] 220 mg Tablet 1 dose PO PRN PRN (Reason: pain) RF: 0 ibuprofen [Advil] 200 mg Tablet 1 dose PO PRN PRN (Reason: pain) RF: 0 Excedrin 1 tab PO PRN PRN (Reason: pain) RF: 0 <Svitlana Treadwell DO - Last Filed: 04/18/18 09:45> [facility] I was immediately available in the department for consultation. This documentation has been reviewed and I agree with assessment and plan. Supervised by Svitlana Treadwell DO
[2018-04-16 12:45] VITALS: BP 198/129; PULSE 104; PULSE 99; RESP 24; O2SAT 94
[2018-04-16] MEDS: methylPREDNISolone 125 MG/2 ML VIAL IV (12:59)
--- NOTE | 2018-04-16 13:55 | PC.NURSE ---
Ambulated pt around department while monitoring O2 saturation. Pt dropped to 92 at the lowest but tolerated walk well. Pt visually short of breath, however pt states she is improved on where she was. States she feels ready to go home. Provider notified of progress and discussion with pt.
[2018-04-16 14:00] VITALS: BP 200/123; PULSE 95; RESP 19; O2SAT 94
[2018-04-16 14:24] VITALS: BP 200/123; PULSE 95; RESP 19; O2SAT 93
== END 2018-04-16 14:26 | disposition home or self-care (01) ==
PROVIDERS: Emergency Medicine; Emergency Provider Nurse Practitioner Family
DX: J44.1 Chronic obstructive pulmonary disease with (acute) exacerbation (principal)
CPT/HCPCS: 36591; 71046; 80048; 82550; 82553; 83605; 83735; 83880; 84145; 84484; 85025; 93005; 93010; 94150; 94640; 96374; 99283; 99285; J2930

== ENCOUNTER 2022-01-19 19:41 | Emergency (ER) | payer OTHER, MEDICAID, SELFPAY ==
[2022-01-19] VITALS (11 sets, daily range): BP systolic 184–226; BP diastolic 95–128; PULSE 103–123; RESP 14–24; TEMP 36.7; O2SAT 94–98; BMI 39.9
--- NOTE | 2022-01-19 20:00 | PC.NURSE ---
pt states she passed some blood with her bowel movement today, states she has had diarrhea but today passed blood, now her abd feels like a balloon is blowing up in her abd intermittently no hx, has had diverticulitis in the past, pt states she has also been having dizziness with standing, states she has had trouble getting to the bathroom as she becomes dizzy and her vision blurs. when asked to stand to walk pt nano slowly but was noted to need to hold on to the stretcher so as not to fall, is able to walk holding on to her friend
--- NOTE | 2022-01-19 20:37 | ED.GIBLEED ---
HPI - GI Bleed General Chief complaint: GI Bleed Stated complaint: pooping blood Time Seen by Provider: 01/19/22 20:02 Mode of arrival: Family Vehicle History of Present Illness HPI Narrative: 56F smoker with history of diverticulitis and hypertension presents with family for chief complaint of lower abdominal discomfort, crampy in nature with the passage of bright red blood per rectum and occasional clots. She has an extensive history of diverticulitis. She denies any fever or chills. She is not dizzy nor weak or lightheaded. She denies any headache, blurred vision or trouble with speech. She denies runny nose, sore throat or cough. She does not take any blood thinners and denies any significant history of alcohol. Her abdominal discomfort seems to be crampy and episodic in nature and often will build until she has a bowel movement at which point it improves Related Data Home Medications Medication Instructions Recorded Confirmed Excedrin 1 tab PO PRN PRN pain 04/16/18 04/16/18 ibuprofen 200 mg tablet (Advil) 1 dose PO PRN PRN pain 04/16/18 04/16/18 naproxen sodium 220 mg tablet 1 dose PO PRN PRN pain 04/16/18 04/16/18 (Aleve) Previous Rx's Medication Instructions Recorded albuterol sulfate 90 mcg/actuation 1 puff inhalation Q4-6H PRN 04/13/18 aerosol inhaler shortness of breath or wheezing #6.7 grams doxycycline monohydrate 100 mg 100 mg PO BID #20 caps 04/16/18 capsule ipratropium 0.5 mg-albuterol 3 mg 3 ml inhalation Q4-6H PRN wheezing 04/16/18 (2.5 mg base)/3 mL nebulization #90 mL soln prednisone 50 mg tablet 50 mg PO DAILY #5 tabs 04/16/18 hyoscyamine sulfate 0.125 mg tablet 0.125 mg PO BID-QID PRN dyspepsia 01/20/22 #20 tabs pantoprazole 40 mg tablet,delayed 40 mg PO DAILY #30 tabs 01/20/22 release (Protonix) Allergies Allergy/AdvReac Type Severity Reaction Status Date / Time azithromycin Allergy Verified 01/19/22 19:54 morphine Allergy Verified 01/19/22 19:54 Review of Systems Review of Systems Narrative: GENERAL: See HPI HEENT: Denies sinus pain, ear pain, sore throat, difficulty swallowing, dizziness. RESPIRATORY: Denies dyspnea, cough, wheezing, hemoptysis, sputum. CARDIOVASCULAR: Denies chest pain, palpitations, orthopnea, edema, GASTROINTESTINAL: See HPI : Denies dysuria, frequency, incontinence, hematuria, urinary retention. MUSCULOSKELETAL: denies weakness, joint pain, or bony pain SKIN: Denies rash, skin lesions, or other NEUROLOGIC: Denies weakness, headache, numbness, change in speech, confusion, seizures, incoordination. PSYCHIATRIC: No concerning psychosocial issues. 12 point review of systems is negative except for those stated above Patient History Medical History COPD (chronic obstructive pulmonary disease) Hypertension Irregular heartbeat Social History Smoking Status: Current every day smoker Smoking Status: Current every day smoker alcohol intake frequency: a few times a week Substance Use Type: does not use Exam Narrative Exam Narrative: GENERAL: [56] year old patient appears stated age. Well-developed patient, in mild distress. HEAD: Atraumatic. Normocephalic. EYES: Pupils equal round and reactive. Extraocular motions intact. No scleral icterus. No injection or drainage. ENT: Nose without bleeding, purulent drainage. Throat without erythema, tonsillar hypertrophy or exudate. Airway patent. NECK: Trachea midline. Non tender CARDIOVASCULAR: Regular rate and rhythm without murmurs, gallops, or rubs. RESPIRATORY: Clear to auscultation. Breath sounds equal bilaterally. No wheezes, rales, or rhonchi. GASTROINTESTINAL: Abdomen soft, non-tender, nondistended. Bowel sounds present in all quadrants EXTREMITIES: No edema or joint tenderness. BACK: Nontender without deformity or crepitance. No flank tenderness. NEURO: AOx3. SKIN: No rash or erythema of visible areas Initial Vital Signs Initial Vital Signs: Vital Signs Temperature 98.0 F 01/19/22 19:48 Pulse Rate 123 H 01/19/22 19:48 Respiratory Rate 18 01/19/22 19:48 Blood Pressure 226/128 H 01/19/22 19:48 Pulse Oximetry 98 01/19/22 19:48 Oxygen Delivery Method 01/19/22 19:48 Course Orders Ordered: ED Orders 01/19/22 22:05 CT abdomen pelvis w con Stat 01/20/22 01:10 Hemoglobin and Hematocrit Stat Discontinued Medications Hydromorphone HCl (Hydromorphone 0.5 Mg Inj) 0.5 mg IV NOW ONE Stop: 01/19/22 22:06 Last Admin: 01/19/22 22:48 Dose: 0.5 mg Documented By: JULIUS Sodium Chloride (Normal Saline 0.9%) 1,000 mls @ 1,000 mls/hr IV BOLUS ONE Stop: 01/19/22 23:04 Last Infusion: 01/20/22 00:00 Dose: 0 mls/hr Documented By: Admin: 01/19/22 22:48 Dose: 1,000 mls/hr Documented By: JULIUS Sodium Chloride (Normal Saline 0.9%) 1,000 mls @ 1,000 mls/hr IV BOLUS ONE Stop: 01/20/22 02:15 Last Infusion: 01/20/22 01:18 Dose: 0 mls/hr Documented By: Admin: 01/20/22 00:00 Dose: 1,000 mls/hr Documented By: JULIUS Ondansetron HCl (Ondansetron 4 Mg/2 Ml Inj) 4 mg IV NOW ONE Stop: 01/19/22 22:06 Last Admin: 01/19/22 22:48 Dose: 4 mg Documented By: JULIUS Consultations Consultation #1: Patient has significantly improved symptoms with the above stated therapies Vital Signs Vital signs: Vital Signs - 8 hr 01/19/22 23:00 01/19/22 23:02 01/19/22 23:02 Pulse Rate 115 H 113 H Respiratory Rate 24 18 Blood Pressure 204/118 H Pulse Oximetry 97 95 01/19/22 23:30 01/19/22 23:31 01/19/22 23:31 Pulse Rate 103 H 106 H Respiratory Rate 14 21 Blood Pressure 184/106 H Pulse Oximetry 95 95 01/20/22 00:00 01/20/22 00:00 01/20/22 00:30 Pulse Rate 102 H 99 H Respiratory Rate 18 16 Blood Pressure 199/96 H Pulse Oximetry 95 94 01/20/22 00:31 01/20/22 00:31 01/20/22 01:00 Pulse Rate 101 H Respiratory Rate 16 Blood Pressure 211/91 H 186/97 H Pulse Oximetry 94 01/20/22 01:00 01/20/22 01:30 01/20/22 01:45 Pulse Rate 100 H 98 H Respiratory Rate 19 40 H Blood Pressure 182/100 H Pulse Oximetry 95 94 01/20/22 01:45 01/20/22 02:00 Pulse Rate 99 H 91 H Respiratory Rate 19 17 Blood Pressure Pulse Oximetry 95 95 MDM - GI Bleed Lab Data Result diagrams: 01/20/22 01:10 01/19/22 20:35 Labs: Lab Results 01/19/22 01/19/22 01/19/22 Range/Units 20:20 20:35 20:35 WBC 12.6 H (4.5-11.0) X10^3/uL RBC 5.18 (4.0-5.2) X10^6/uL Hgb 13.8 (12.0-16.0) g/dL Hct 41.5 (36-46) % MCV 80.1 (80-100) fL MCH 26.7 (26-34) PG MCHC 33.3 (30-36) % RDW 16.0 H (11.6-14.8) % Plt Count 275 (150-400) X10^3/uL Neut % (Auto) 73.0 (50-75) % Lymph % (Auto) 17.9 L (25-40) % [place] % (Auto) 6.3 (3-14) % Eos % (Auto) 2.0 (2-4) % Baso % (Auto) 0.8 (0-2) % Neut # (Auto) 9200 H (8123-6164) /uL Lymph # (Auto) 2300 (6794-8859) /uL [place] # (Auto) 800 (0-900) /uL Eos # (Auto) 300 (0-450) /uL Baso # (Auto) 100 (0-100) /uL Sodium 138 (137-145) mmol/L Potassium 3.9 (3.4-5.1) mmol/L Chloride 103 (98-107) mmol/L Carbon Dioxide 26 (22-32) mmol/L BUN 22 H (7-17) mg/dL Creatinine 1.03 (0.52-1.04) mg/dL Estimated GFR > 60 (>60) mL/min BUN/Creatinine Ratio 21.4 (6-22) Glucose 105 H (70-100) mg/dL Calcium 9.0 (8.4-10.2) mg/dL Total Bilirubin 0.4 (0.2-1.3) mg/dL AST 26 (14-36) IU/L ALT 21 (<35) IU/L Alkaline Phosphatase 90 (38-126) U/L Total Protein 7.3 (6.3-8.2) g/dL Albumin 4.3 (3.5-5.0) g/dL Globulin 3.0 (1.7-4.1) g/dL Albumin/Globulin Ratio 1.4 (1.0-2.8) Urine RBC 0-1/hpf (0-5/HPF) Urine WBC 0-1/hpf (0-5/HPF) Ur Squamous Epith Cells 1-5 /hpf (0-5/HPF) Urine Bacteria Occasional (0-1) (None) Ur Culture Indicated? Culture not indicate Blood Type Antibody Screen 01/19/22 01/20/22 Range/Units 20:35 01:10 WBC (4.5-11.0) X10^3/uL RBC (4.0-5.2) X10^6/uL Hgb 13.5 (12.0-16.0) g/dL Hct 41.1 (36-46) % MCV (80-100) fL MCH (26-34) PG MCHC (30-36) % RDW (11.6-14.8) % Plt Count (150-400) X10^3/uL Neut % (Auto) (50-75) % Lymph % (Auto) (25-40) % [place] % (Auto) (3-14) % Eos % (Auto) (2-4) % Baso % (Auto) (0-2) % Neut # (Auto) (5455-1854) /uL Lymph # (Auto) (3475-2142) /uL [place]cher # (Auto) (0-900) /uL Eos # (Auto) (0-450) /uL Baso # (Auto) (0-100) /uL Sodium (137-145) mmol/L Potassium (3.4-5.1) mmol/L Chloride (98-107) mmol/L Carbon Dioxide (22-32) mmol/L BUN (7-17) mg/dL Creatinine (0.52-1.04) mg/dL Estimated GFR (>60) mL/min BUN/Creatinine Ratio (6-22) Glucose (70-100) mg/dL Calcium (8.4-10.2) mg/dL Total Bilirubin (0.2-1.3) mg/dL AST (14-36) IU/L ALT (<35) IU/L Alkaline Phosphatase (38-126) U/L Total Protein (6.3-8.2) g/dL Albumin (3.5-5.0) g/dL Globulin (1.7-4.1) g/dL Albumin/Globulin Ratio (1.0-2.8) Urine RBC (0-5/HPF) Urine WBC (0-5/HPF) Ur Squamous Epith Cells (0-5/HPF) Urine Bacteria (None) Ur Culture Indicated? Blood Type A Positive Antibody Screen Negative Urine Dip Bedside Urine Glucose Negative Bedside Urine Bilirubin - Negative Bedside Urine Ketone - Negative Urine Specific [place] 1.025 Bedside Urine Occult Blood - Negative Bedside Urine pH 6 Bedside Urine Protein +++ 300 Bedside Urine Urobilinogen - Negative Bedside Urine Nitrite - Negative Bedside Urine Leukocytes - Negative Esterase Imaging Data CT scan - abdomen/pelvis: Radiologist's Impression: [place] [address] CT Scan Report Signed Patient: AntonioYaneli morales MR#: [id number] : 1965 Acct:[id number] Age/Sex: 56 / F Date of Service: 01/19/22 Loc: ED Accession Number: [id number] ?? Procedure: CT abdomen pelvis w con Ordering Provider: Jc Avery D.O. PROCEDURE:? CT ABDOMEN PELVIS W CON ? INDICATIONS:? severe lower abdominal pain, tachycardia ? TECHNIQUE:? After the administration of intravenous contrast, axial sections acquired from the lung bases to the pubic symphysis.? Coronal and sagittal reformats were performed.? For radiation dose reduction, the following was used:? automated exposure control, adjustment of mA and/or kV according to patient size.? ? COMPARISON:? [facility], CT, CT ABDOMEN PELVIS WITH CONTRAST, 06/04/2019, 11:48. ? FINDINGS:? Included portions of the lung bases are clear. ? There is no pneumoperitoneum or pathologic free fluid.? No abnormally dilated or thickened loop of bowel.? Sigmoid diverticulosis without findings of diverticulitis.? Appendix normal.? No pericolonic or mesenteric inflammatory changes. ? To hyperdense gallstones measuring approximately 1.6 cm.? Gallbladder otherwise normal.? No acute finding the liver, spleen, pancreas, adrenal glands. ? Probable uterine fibroid containing a tiny calcification.? Uterus and ovaries otherwise normal.? No threshold enlarged pelvic or inguinal lymph node. ? No acute or suspicious osseous lesion.? ? ? IMPRESSION:? No acute finding. ? ? Dictated by: Keith Abreu M.D. on 01/19/2022 at 23:21 ? ? Approved by: Keith Abreu M.D. on 01/19/2022 at 23:27 MDM Narrative Medical decision making narrative: Patient with reassuring history and physical exam has been observed for many hours and had no bowel movements. She is been given 2 L of fluid and vital signs improved and patient is asymptomatic. H&H is unchanged and CT has no significant abnormalities. She is given return precautions and questions answered to her apparent satisfaction Discharge Plan Departure Patient Disposition: Home Clinical Impression: Lower gastrointestinal hemorrhage Instructions: Gastrointestinal Bleeding Activity Restrictions/Additional Instructions: *You have been diagnosed with [abdominal crampy pain likely due a diverticular bleed] * As we discussed your history and physical exam as well as labs and imaging are very reassuring. There is no evidence of any severe diagnoses that would require a specific or immediate intervention. *What to do: *Please continue to take your regular medications as directed. [x ] New medication prescriptions sent to your pharmacy: [[facility] in [place] ] *Please follow up with your primary care provider in 2-3 days, call for an appointment. Let them know you were seen in the Emergency Department and that we ask that you be seen in follow up. We will electronically transmit a record of today's note if your PCP is in our system *Please consider a clear liquid diet for the next 24-48 hours and then slowly advance to regular as tolerated. Also, try to avoid alcohol, nicotine, caffeine, spicy, acidic or fatty foods as this may worsen your symptoms *If you do not have a primary care provider please contact the [facility] Resource line at [phone]. They will ask some questions about your medical history and help get you set up with a doctor in the community. *Return to Emergency Department if you should have any new, worsening or concerning symptoms, such as [fever greater than 101 F, shaking chills, worsening pain, persistent vomiting or other bothersome symptoms] Prescriptions: New pantoprazole [Protonix] 40 mg tablet,delayed release (DR/EC) 40 mg PO DAILY Qty: 30 0RF hyoscyamine sulfate 0.125 mg tablet 0.125 mg PO BID-QID PRN (Reason: dyspepsia) Qty: 20 0RF No Action albuterol sulfate 90 mcg/actuation HFA aerosol inhaler 1 puff INHALATION Q4-6H PRN (Reason: shortness of breath or wheezing) Qty: 6.7 0RF naproxen sodium [Aleve] 220 mg Tablet 1 dose PO PRN PRN (Reason: pain) ibuprofen [Advil] 200 mg Tablet 1 dose PO PRN PRN (Reason: pain) Excedrin 1 tab PO PRN PRN (Reason: pain) ipratropium-albuterol 0.5 mg-3 mg(2.5 mg base)/3 mL solution for nebulization 3 ml INHALATION Q4-6H PRN (Reason: wheezing) Qty: 90 0RF prednisone 50 mg tablet 50 mg PO DAILY Qty: 5 0RF doxycycline monohydrate 100 mg capsule 100 mg PO BID Qty: 20 0RF Referrals: Tanner Crews MD [Non-Staff] - Visit Report Forms: Patient Portal/API
[2022-01-19 21:14] LABS: Add Manual Diff / Slide Review NO; Basophils Absolute Auto 100 /uL (0-100); Basophils Percent Auto 0.8 % (0-2); Eosinophils Absolute Auto 300 /uL (0-450); Hematocrit 41.5 % (36-46); Hemoglobin 13.8 g/dL (12.0-16.0); Lymphocytes Absolute Auto 2300 /uL (1100-4500); Lymphocytes Percent Auto 17.9 % (25-40); Mean Corpuscular HGB Conc 33.3 % (30-36); Mean Corpuscular Hemoglobin 26.7 PG (26-34); Mean Corpuscular Volume 80.1 fL (80-100); Monocytes Absolute Auto 800 /uL (0-900); Monocytes Percent Auto 6.3 % (3-14); Neutrophils Absolute Auto 9200 /uL (1500-7000); Platelet Count 275 X10^3/uL (150-400); Red Blood Cell Count 5.18 X10^6/uL (4.0-5.2); White Blood Cell Count 12.6 X10^3/uL (4.5-11.0)
[2022-01-19 21:28] LABS: Bacteria Urine Occasional (0-1); RBC Urine 0-1/HPF (0-5/HPF); Squamous Epithelial Cell Urine 1-5 /HPF (0-5/HPF); WBC Urine 0-1/HPF (0-5/HPF)
[2022-01-19 21:32] LABS: Alanine Aminotransferase 21 IU/L (<35); Albumin 4.3 g/dL (3.5-5.0); Albumin Globulin Ratio 1.4 (1.0-2.8); Alkaline Phosphatase 90 U/L (38-126); Aspartate Aminotransferase 26 IU/L (14-36); BUN Creatinine Ratio 21.4 (6-22); Bilirubin Total 0.4 mg/dL (0.2-1.3); Blood Urea Nitrogen 22 mg/dL (7-17); Carbon Dioxide 26 mmol/L (22-32); Chloride 103 mmol/L (98-107); Estimated Glomerular Filt Rate > 60 mL/min (>60); Glucose 105 mg/dL (70-100); HEMOLYSIS 22 (0-50); Potassium 3.9 mmol/L (3.4-5.1); Sodium 138 mmol/L (137-145); Total Protein 7.3 g/dL (6.3-8.2)
--- NOTE | 2022-01-19 22:05 | DI.CT.S_ITS ---
PROCEDURE: CT ABDOMEN PELVIS W CON INDICATIONS: severe lower abdominal pain, tachycardia TECHNIQUE: After the administration of intravenous contrast, axial sections acquired from the lung bases to the pubic symphysis. Coronal and sagittal reformats were performed. For radiation dose reduction, the following was used: automated exposure control, adjustment of mA and/or kV according to patient size. COMPARISON: [facility], CT, CT ABDOMEN PELVIS WITH CONTRAST, 06/04/2019, 11:48. FINDINGS: Included portions of the lung bases are clear. There is no pneumoperitoneum or pathologic free fluid. No abnormally dilated or thickened loop of bowel. Sigmoid diverticulosis without findings of diverticulitis. Appendix normal. No pericolonic or mesenteric inflammatory changes. To hyperdense gallstones measuring approximately 1.6 cm. Gallbladder otherwise normal. No acute finding the liver, spleen, pancreas, adrenal glands. Probable uterine fibroid containing a tiny calcification. Uterus and ovaries otherwise normal. No threshold enlarged pelvic or inguinal lymph node. No acute or suspicious osseous lesion. IMPRESSION: No acute finding. Dictated by: Keith Abreu M.D. on 01/19/2022 at 23:21 Approved by: Keith Abreu M.D. on 01/19/2022 at 23:27
[2022-01-19] MEDS: SODIUM CHLORIDE 0.9% 1,000 ML 1000 ML IV (22:48)
[2022-01-19] MEDS: ONDANSETRON 4 MG/2 ML INJ IV (22:48)
[2022-01-19] MEDS: HYDROMORPHONE 0.5 MG INJ IV (22:48)
[2022-01-20] VITALS (7 sets, daily range): BP systolic 182–211; BP diastolic 91–100; PULSE 91–102; RESP 16–40; O2SAT 94–95
[2022-01-20] MEDS: SODIUM CHLORIDE 0.9% 1,000 ML 1000 ML IV
[2022-01-20 01:22] LABS: Hematocrit 41.1 % (36-46); Hemoglobin 13.5 g/dL (12.0-16.0)
== END 2022-01-20 01:15 | disposition home or self-care (01) ==
PROVIDERS: Emergency Provider Emergency Medicine
DX: K92.2 Gastrointestinal hemorrhage, unspecified (principal)
CPT/HCPCS: 36415; 74177; 80053; 81003; 81015; 85014; 85018; 85025; 86850; 86900; 86901; 87086; 93005; 96361; 96374; 96375; 99284; J1170; J2405; Q9967

== ENCOUNTER → 2023-08-29 08:27 | Outpatient (CLI) | payer OTHER, MEDICAID, SELFPAY | PROVIDERS: PCP Family Medicine; Referring Provider Internal Medicine Critical Care Medicine; Visit Provider Internal Medicine Critical Care Medicine | DX: J44.9 Chronic obstructive pulmonary disease, unspecified (principal); F17.210 Nicotine dependence, cigarettes, uncomplicated | CPT/HCPCS: 94060; 94726; 94729 ==

== ENCOUNTER → 2024-01-09 07:43 | Outpatient (CLI) | payer OTHER, MEDICAID, SELFPAY ==
--- NOTE | 2024-01-09 07:44 | DI.CT.S_ITS ---
PROCEDURE: CT LUNG LOW DOSE SCREENING INDICATIONS: lung cancer screening TECHNIQUE: Noncontrast 2.0-2.5 mm thick sections acquired from the pulmonary apices to the posterior costophrenic angles. 7 mm thick axial MIP, and 5 mm coronal and sagittal reformats were then acquired. For radiation dose reduction, the following was used: automated exposure control, adjustment of mA and/or kV according to patient size. COMPARISON: None. FINDINGS: Image quality: Diagnostic. Lower Neck: No enlarged lymph nodes. Thyroid: No thyroid nodules which require sonographic follow up, per consensus guidelines. Axillae: No enlarged lymph nodes. Chest Wall: Unremarkable. Bones: Unremarkable. Lungs and Pleura: No pneumothorax or pleural effusions. No consolidation or suspicious nodules. Heart: Heart size is normal. No pericardial effusion. Thoracic Vessels: The aorta and pulmonary arteries demonstrate normal size. Mediastinum and Corina: No enlarged lymph nodes. Esophagus: No wall thickening. No hiatal hernia. Upper Abdomen: Visualized upper abdomen solid organs and bowel loops appear normal. IMPRESSION: No suspicious pulmonary nodules. LUNG-RADS 1; continued annual screening, if eligible. Clinically Significant Non-pulmonary Findings: None. Dictated by: Jovani Mendes M.D. on 01/09/2024 at 10:23 Approved by: Jovani Mendes M.D. on 01/09/2024 at 10:24
== END ==
PROVIDERS: PCP Family Medicine; Referring Provider Internal Medicine Critical Care Medicine; Visit Provider Internal Medicine Critical Care Medicine
DX: Z12.2 Encounter for screening for malignant neoplasm of respiratory organs (principal); F17.210 Nicotine dependence, cigarettes, uncomplicated
CPT/HCPCS: 71271